=== PATIENT | male | born 1955 | race African-American/Black ===

== ENCOUNTER 2023-06-25 20:27 | Emergency (ER) | payer OTHER ==
[2023-06-25] MEDS ORDERED: Ibuprofen 200 MG TAB ONE (23:14)
== END 2023-06-25 23:24 ==
LOC: CSHERS 20:27
DX: K64.4 Residual hemorrhoidal skin tags (principal); K21.9 Gastro-esophageal reflux disease without esophagitis
CPT/HCPCS: 99283